=== PATIENT | male | born 1985 | race African-American/Black ===

== ENCOUNTER 2020-03-02 10:05 | Inpatient (IN) | payer MEDICAID, OTHER ==
[~2020-03-02] VITALS: Ht 170.2 cm; Wt 100.0 kg
[2020-03-02 10:28] LABS: BASOPHILS % 0.5 % (0.0-2.0); EOSINOPHILS % 0.2 % (0.0-5.0); HEMATOCRIT. 47.7 % (42.0-52.0); INR 1.1; LYMPHOCYTES % 15.1 % (20.0-50.0); MEAN CORPUSCULAR VOLUME 86.4 fL (80.0-94.0); MEAN PLATELET VOLUME 8.7 fl (7.4-10.4); MONOCYTES % 6.6 % (2.0-8.0); NEUTROPHILS % 77.6 % (40.0-76.0); PLATELET 222 x1000/uL (130-400); PROTHROMBIN TIME 11.4 sec (9.6-11.0); RED BLOOD CELL COUNT 5.51 mill/uL (4.7-6.1); RED CELL DISTRIBUTION WIDTH 13.6 % (11.6-14.6)
[2020-03-02 10:44] LABS: CHLORIDE 106 mEq/L (98-107)
[2020-03-02] MEDS ORDERED: ALTEPLASE IV STA (10:48)
[2020-03-02] MEDS ORDERED: ALTEPLASE 100MG/VIAL IV STA (10:48)
[2020-03-02 10:49] LABS: ETHANOL BLOOD < 10 mg/dL
[2020-03-02 10:52] LABS: LDL CHOLESTEROL 104 mg/dL (5-100)
[2020-03-02] MEDS ORDERED: ASPIRIN 325MG EC TABLET PO ONE (11:15)
[2020-03-02] MEDS ORDERED: IOHEXOL-350 100 ML BOTTLE ONE (11:37)
[2020-03-02] MEDS ORDERED: *NO ASPIRIN X 24 HOURS XX SCH (12:33)
[2020-03-02 15:55] LABS: CLARITY URINE CLEAR (CLEAR); COLOR URINE YELLOW (YELLOW); KETONES URINE NEGATIVE (NEGATIVE); LEUKOCYTE ESTERASE URINE NEGATIVE (NEGATIVE); NITRITE URINE NEGATIVE (NEGATIVE); OCCULT BLOOD URINE NEGATIVE (NEGATIVE); PROTEIN URINE NEGATIVE (NEGATIVE); SPECIFIC GRAVITY URINE 1.042 (1.005-1.030)
[2020-03-02 15:59] LABS: *AMPHETAMINES SCREEN URINE NEGATIVE (NEGATIVE); *BARBITURATES SCREEN URINE NEGATIVE (NEGATIVE); *BENZODIAZEPINES SCREEN URINE NEGATIVE (NEGATIVE)
[2020-03-02 16:00] LABS: *COCAINE SCREEN URINE NEGATIVE (NEGATIVE); CANNABINOID URINE SCREEN NEGATIVE (NEGATIVE); METHADONE URINE SCREEN NEGATIVE (NEGATIVE); OPIATES URINE SCREEN NEGATIVE (NEGATIVE); PHENCYCLIDINE URINE SCREEN NEGATIVE (NEGATIVE)
[2020-03-02 17:35] VITALS: BP 129/86
[2020-03-02 17:36] VITALS: BP 129/86
[2020-03-02 20:00] VITALS: BP 127/90
[2020-03-02] MEDS ORDERED: ZOLPIDEM TARTRATE 5MG TABLET PO PRN (20:15)
[2020-03-02] MEDS ORDERED: MAGNESIUM/ALUMINUM HYDROXIDE/SIMETHICONE 30ML UDC PO PRN (20:15)
[2020-03-02] MEDS ORDERED: ONDANSETRON HCL 4MG/2ML INJ IV PRN (20:15)
[2020-03-02] MEDS ORDERED: DIPHENHYDRAMINE 50MG/ML VIAL IV PRN (20:15)
[2020-03-02] MEDS ORDERED: ACETAMINOPHEN 325MG TABLET PO PRN ×2 (20:15)
[2020-03-02] MEDS ORDERED: CLONIDINE 0.1MG TABLET PO PRN (20:15)
[2020-03-02] MEDS: ATORVASTATIN CALCIUM 20MG TABLET PO SCH (20:54)
[2020-03-02 21:00] VITALS: BP 112/63
[2020-03-02] MEDS: SODIUM CHLORIDE 0.9% INJ 3ML FLUSH IVF SCH (21:41)
[2020-03-02 22:00] VITALS: BP 106/64
[2020-03-02 23:02] VITALS: BP 114/79
[2020-03-03] VITALS (17 sets, daily range): BP systolic 92–128; BP diastolic 31–74
[2020-03-03] MEDS: SODIUM CHLORIDE 0.9% INJ 3ML FLUSH IVF SCH ×3 (05:10→21:03)
[2020-03-03 09:14] LABS: CHLORIDE 106 mEq/L (98-107)
[2020-03-03 09:20] LABS: HEMATOCRIT 48.4 % (42.0-52.0); HEMOGLOBIN 15.9 g/dL (14.0-18.0); MEAN CORPUSCULAR HEMOGLOBIN 28.6 pg (28.0-32.0); MEAN CORPUSCULAR VOLUME 87.3 fL (80.0-94.0); PLATELET 215 x1000/uL (130-400); RED BLOOD CELL COUNT 5.55 mill/uL (4.7-6.1); RED CELL DISTRIBUTION WIDTH 14.1 % (11.6-14.6)
[2020-03-03] MEDS: ATORVASTATIN CALCIUM 20MG TABLET PO SCH (20:20)
[2020-03-03] MEDS ORDERED: ASPIRIN 81MG EC TABLET PO SCH (21:00)
[2020-03-04] VITALS (9 sets, daily range): BP systolic 96–117; BP diastolic 55–73
[2020-03-04] MEDS: SODIUM CHLORIDE 0.9% INJ 3ML FLUSH IVF SCH ×2 (05:02→15:40)
[2020-03-04] MEDS ORDERED: ASPIRIN 81MG EC TABLET PO SCH ×2 (09:00→20:00)
[2020-03-04] MEDS ORDERED: ASPIRIN 81MG TABLET PO SCH (09:00)
== END 2020-03-04 17:10 | disposition home or self-care (01) | DRG 45 ==
LOC: ER 10:18 → EDBEDREQ 13:17 → EDBEDREQTM 13:17 → ENRESERV 16:44 → 3WST 17:32
PROVIDERS: ADMIT Internal Medicine; ATTEND Internal Medicine
DX: I63.9 Cerebral infarction, unspecified (principal); E78.00 Pure hypercholesterolemia, unspecified; E78.5 Hyperlipidemia, unspecified; R29.702 NIHSS score 2; Z79.82 Long term (current) use of aspirin; Z82.3 Family history of stroke; Z79.899 Other long term (current) drug therapy
CPT/HCPCS: 36415; 70496; 70551; 71045; 80048; 80053; 80061; 80305; 80320; 81003; 83721; 84484; 85025; 85027; 93005; 93306; 93880; 99291; J2997; Q9967; G0480